=== PATIENT | male | born 1940 | race Caucasian/White ===

== ENCOUNTER 2017-04-12 12:40 | Inpatient (IN) | payer MEDICARE, BC ==
--- NOTE | 2017-04-12 17:15 | PCM.HP ---
H&P History of Present Illness - General Date of Service: 04/12/17 Admit Problem/Dx: Admission Diagnosis/Problem Admission Diagnosis/Problem Coronary artery bypass grafts x 3 Source of Information: Patient History Limitations: Reports: No Limitations - History of Present Illness Initial Comments - Free Text/Narative: Pt is a 76 year old Male who is here for swing bed admission. Pt has had Triple vessel CABG done on 04/05/[address] Cruz at [facility]. Pt has had uneventful recovery. He did receive 2 units of PRBC post surgery. He has been feeling fine. Has no chest pain, shortness of breath. No fever or chills. He has been doing OT and PT. No complaints or concern from patient. Able to walk without discomfort. His discharge hemoglobin was 8.6 - Related Data Allergies/Adverse Reactions: Allergies Allergy/AdvReac Type Severity Reaction Status Date / Time azithromycin Allergy Severe Anaphylactic Verified 12/14/16 12:42 Shock Home Medications: Home Meds Clopidogrel Bisulfate [Clopidogrel] 75 mg PO DAILY 07/09/14 [History] Simvastatin 40 mg PO QPM 02/04/15 [History] Metoprolol Succinate [Toprol XL] 25 mg PO QPM 10/23/15 [History] Docusate Sodium [Stool Softener] 250 mg PO BID PRN 05/02/16 [History] Albuterol [Ventolin HFA] 2 puff INH Q4H PRN 06/01/16 [History] Amitriptyline [Elavil] 100 mg PO QPM tablet 06/04/16 [Rx] Arformoterol [Brovana] 15 mcg INH BID 12/09/16 [History] Benzonatate [Tessalon Perles] 100 mg PO TID PRN 12/09/16 [History] Budesonide [Pulmicort] 0.5 mg IH BID 12/09/16 [History] Ferrous Sulfate 325 mg PO BID 12/09/16 [History] Levofloxacin [Levaquin] 750 mg PO DAILY 12/09/16 [History] Lisinopril 20 mg PO DAILY 12/09/16 [History] Warfarin [Coumadin] 5 mg PO DAILY@1800 12/09/16 [History] Past Medical History - Past Health History Medical/Surgical History: Denies Medical/Surgical History HEENT History: Reports: Hard of Hearing Cardiovascular History: Reports: Afib, Bypass, Heart Failure, High Cholesterol, Hypertension Respiratory History: Reports: COPD, Pneumonia, Recurrent, SOB Gastrointestinal History: Reports: Chronic Constipation Other Gastrointestinal History: indigestion, last BM 2-3 days ago Genitourinary History: Reports: Renal Disease Musculoskeletal History: Reports: Gout Psychiatric History: Reports: Depression Endocrine/Metabolic History: Reports: Other (See Below) Other Endocrine/Metabolic History: TSH elevated Hematologic History: Reports: Anemia, Blood Transfusion(s) Dermatologic History: Reports: Other (See Below) Other Dermatologic History: left side of nare bleeding - Infectious Disease History Infectious Disease History: Reports: Chicken Pox, Measles, Mumps - Past Surgical History Other HEENT Surgeries/Procedures: cataract surg scheduled for May Cardiovascular Surgical History: Reports: Coronary Artery Bypass Musculoskeletal Surgical History: Reports: Hip Replacement, Joint Replacement, Knee Replacement, Other (See Below) Other Musculoskeletal Surgeries/Procedures:: knee replacement bilaterally, left hip. Dermatological Surgical History: Reports: Other (See Below) Social & Family History - Family History Family Medical History: Noncontributory Cardiac: Reports: Heart Failure, Hypertension - Tobacco Use Smoking Status *Q: Former Smoker Years of Tobacco use: 22 Packs/Tins Daily: 1 Used Tobacco, but Quit: Yes Month Tobacco Last Used: march Second Hand Smoke Exposure: No - Caffeine Use Caffeine Use: Reports: None Caffeine Use Comment: "I was told I had to quit drinking caffiene." - Alcohol Use Days Per Week of Alcohol Use: 0 - Recreational Drug Use Recreational Drug Use: No H&P Review of Systems - Review of Systems: Review Of Systems: See Below General: Denies: Fever, Chills, Malaise, Weakness, Night Sweats HEENT: Denies: Ear Pain, Headaches, Hearing Changes, Sinus Congestion, Vertigo, Visual Changes Pulmonary: Denies: Shortness of Breath, Wheezing, Cough, Sputum Cardiovascular: Denies: Chest Pain, Dyspnea on Exertion, Orthopnea, Lightheadedness Gastrointestinal: Denies: Abdominal Pain, Nausea, Vomiting Genitourinary: Denies: Dysuria, Frequency Musculoskeletal: Denies: Neck Pain, Joint Pain, Joint Swelling Skin: Denies: Jaundice, Pruritis, Rash, Erythema Psychiatric: Denies: Confusion, Depression Exam - Exam Exam: See Below - Vital Signs Weight: 108.953 kg - Exam General: Alert, Oriented, 4 HEENT: PERRLA, Hearing Intact, Mucosa Moist & [place], Nares Patent, Normal Nasal Septum, Posterior Pharynx Clear, Conjunctiva Clear, EOMI, EACs Clear, TMs Clear Neck: Supple, Trachea Midline, 2 Lungs: Clear to Auscultation, Normal Respiratory Effort, Other (There is a well healed Mid sternal incsision, mild chest wall bruising) Cardiovascular: Irregular Rhythm Abdomen: Normal Bowel Sounds, Soft Back Exam: Normal Inspection, Full Range of Motion, NT Extremities: Normal Inspection, Edema (lower extremities 2+ pitting), Other ( Right wrist closed wound healing well . ) *Q Meaningful Use (ADM) - VTE *Q VTE Criteria *Q: - Stroke *Q Stroke Criteria *Q: - AMI *Q AMI Criteria *Q: - Problem List (1) S/P CABG x 3 SNOMED Code(s): 251268870, 774186239 ICD Code: Z95.1 - PRESENCE OF AORTOCORONARY BYPASS GRAFT Status: Acute Current Visit: Yes (2) CAD (coronary artery disease) SNOMED Code(s): 73630604 ICD Code: I25.10 - ATHSCL HEART DISEASE OF [place] CORONARY ARTERY W/O ANG PCTRS Status: Chronic Priority: Medium Current Visit: No Qualifiers: Coronary Disease-Associated Artery/Lesion type: unspecified vessel or lesion type [place] vs. transplanted heart: [place] heart Associated angina: without angina Qualified Code(s): I25.10 - Atherosclerotic heart disease of [place] coronary artery without angina pectoris Problem List Initiated/Reviewed/Updated: Yes Orders Last 24hrs: Active Orders 24 hr Category Date Time Status Patient Status [ADT] Routine ADT 04/12/17 14:55 Active OT Evaluation and Treatment [CONS] Routine Cons 04/12/17 14:50 Active PT Evaluation and Treatment [CONS] Routine Cons 04/12/17 14:50 Active CULTURE MRSA SURVEY [RM] Routine Lab 04/12/17 14:50 Received Assessment/Plan Comment:: Assessment: S/P Triple vessel CABG with CAD Atrial fibrillation Post Op anemia Plan: Patient's clinical exam is normal. He does have normal healing chest wall and right wrist wound. Will continue PT and PT as he progresses. Will continue his discharge medication. He will have coumadin 2.5 mg for next 2 days and have PT and INR of saturday. Also I would like to Get CBC in am to check his hemoglobin. Will closely monitor patient. I do anticipate smooth recovery.
[2017-04-12] MEDS ORDERED: Tuberculin, PPD 5 Units/0.1 ML 1 ML MDV IDERM ONE (17:21)
[2017-04-12] MEDS: Acetaminophen 325 MG Tab PO PRN (18:00)
[2017-04-12] MEDS ORDERED: Acetaminophen 325 MG Tab PO PRN (21:43)
[2017-04-12] MEDS ORDERED: Amitriptyline 25 MG Tab ONE (22:32)
[2017-04-12] MEDS ORDERED: Metoprolol Tartrate 50 MG Tab ONE (22:32)
[2017-04-12] MEDS ORDERED: Budesonide 0.5 MG/2 ML Neb Susp ONE (22:33)
[2017-04-12] MEDS ORDERED: Simvastatin 20 MG Tab ONE (22:33)
[2017-04-12] MEDS: Budesonide 0.5 MG/2 ML Neb Susp INH SCH (22:41)
[2017-04-12] MEDS: Simvastatin 40 MG Tab PO SCH (22:43)
[2017-04-12] MEDS: Metoprolol Tartrate 50 MG Tab PO SCH (22:48)
[2017-04-12] MEDS: Amitriptyline 25 MG Tab PO SCH (22:48)
[2017-04-13] MEDS: Omeprazole 20 MG Cap.CR PO SCH (06:51)
[2017-04-13] MEDS: Ferrous Sulfate 325 MG Tab PO SCH ×2 (08:27→16:37)
[2017-04-13] MEDS: Docusate Sodium 250 MG Cap PO SCH (08:27)
[2017-04-13] MEDS: Aspirin 81 MG Tab.Chew PO SCH (08:27)
[2017-04-13] MEDS: predniSONE 10 MG Tab PO SCH (08:28)
[2017-04-13] MEDS: Furosemide 20 MG Tab PO SCH ×2 (08:28→16:37)
[2017-04-13] MEDS: Metoprolol Tartrate 50 MG Tab PO SCH ×2 (08:28→20:07)
[2017-04-13] MEDS: Budesonide 0.5 MG/2 ML Neb Susp INH SCH ×2 (08:29→20:09)
[2017-04-13] MEDS: Arformoterol 15 MCG/2 ML Neb Soln INH SCH ×2 (08:43→20:08)
[2017-04-13] MEDS: Acetaminophen 325 MG Tab PO PRN ×2 (10:07→22:42)
[2017-04-13] MEDS: traMADol 50 MG Tab PO PRN ×2 (10:08→20:14)
[2017-04-13] MEDS ORDERED: Amoxicillin/Clavulanate K 875-125 MG Tab ONE (14:53)
[2017-04-13] MEDS: Amoxicillin/Clavulanate K 875-125 MG Tab PO SCH (20:07)
[2017-04-13] MEDS: Simvastatin 40 MG Tab PO SCH (20:07)
[2017-04-13] MEDS: Warfarin 2.5 MG Tab PO SCH (20:08)
[2017-04-13] MEDS: Amitriptyline 25 MG Tab PO SCH (20:08)
[2017-04-13] MEDS: Lactobacillus Acidophilus/Lactobacillus Sporogenes (Probiotic) Tab PO SCH (22:42)
[2017-04-14] MEDS: Omeprazole 20 MG Cap.CR PO SCH (06:33)
[2017-04-14] MEDS: Budesonide 0.5 MG/2 ML Neb Susp INH SCH ×2 (07:35→20:29)
[2017-04-14] MEDS: Ferrous Sulfate 325 MG Tab PO SCH ×2 (08:36→18:42)
[2017-04-14] MEDS: Furosemide 20 MG Tab PO SCH (08:37)
[2017-04-14] MEDS: Lactobacillus Acidophilus/Lactobacillus Sporogenes (Probiotic) Tab PO SCH (08:37)
[2017-04-14] MEDS: Docusate Sodium 250 MG Cap PO SCH (08:37)
[2017-04-14] MEDS: Aspirin 81 MG Tab.Chew PO SCH (08:37)
[2017-04-14] MEDS: Metoprolol Tartrate 50 MG Tab PO SCH ×2 (08:39→20:28)
[2017-04-14] MEDS: Acetaminophen 325 MG Tab PO PRN (08:39)
[2017-04-14] MEDS: Arformoterol 15 MCG/2 ML Neb Soln INH SCH ×2 (08:40→20:29)
[2017-04-14] MEDS: predniSONE 10 MG Tab PO SCH (08:40)
[2017-04-14] MEDS: traMADol 50 MG Tab PO PRN (08:45)
[2017-04-14] MEDS: Amoxicillin/Clavulanate K 875-125 MG Tab PO SCH ×2 (08:45→20:27)
[2017-04-14] MEDS: Warfarin 2.5 MG Tab PO SCH (18:42)
[2017-04-14] MEDS: Amitriptyline 25 MG Tab PO SCH (20:27)
[2017-04-14] MEDS: Simvastatin 40 MG Tab PO SCH (20:28)
[2017-04-15] MEDS: Omeprazole 20 MG Cap.CR PO SCH (06:55)
[2017-04-15] MEDS: Lactobacillus Acidophilus/Lactobacillus Sporogenes (Probiotic) Tab PO SCH (08:22)
[2017-04-15] MEDS: predniSONE 10 MG Tab PO SCH (08:23)
[2017-04-15] MEDS: Furosemide 20 MG Tab PO SCH ×3 (08:24→17:05)
[2017-04-15] MEDS: Metoprolol Tartrate 50 MG Tab PO SCH ×2 (08:24→19:28)
[2017-04-15] MEDS: Amoxicillin/Clavulanate K 875-125 MG Tab PO SCH ×2 (08:24→19:29)
[2017-04-15] MEDS: Ferrous Sulfate 325 MG Tab PO SCH ×2 (08:24→17:05)
[2017-04-15] MEDS: Docusate Sodium 250 MG Cap PO SCH (08:24)
[2017-04-15] MEDS: Aspirin 81 MG Tab.Chew PO SCH (08:24)
[2017-04-15] MEDS: Budesonide 0.5 MG/2 ML Neb Susp INH SCH ×2 (08:29→19:32)
[2017-04-15] MEDS: Arformoterol 15 MCG/2 ML Neb Soln INH SCH (08:51)
--- NOTE | 2017-04-15 09:43 | PCM.SN ---
- Free Text/Narrative Note: Patient is doing well today with no concerns or complaints. He has improved breathing and air movement of the lungs and denies any current sob.
[2017-04-15] MEDS: traMADol 50 MG Tab PO PRN (14:26)
[2017-04-15] MEDS ORDERED: Simvastatin 40 MG Tab PO SCH (14:37)
[2017-04-15] MEDS ORDERED: Albuterol/Ipratropium 3.0-0.5 MG/3 ML Neb Soln INH PRN (14:38)
[2017-04-15] MEDS ORDERED: Warfarin 5 MG Tab PO SCH (18:00)
[2017-04-15] MEDS: Amitriptyline 25 MG Tab PO SCH (19:27)
[2017-04-16] MEDS: Omeprazole 20 MG Cap.CR PO SCH (07:48)
[2017-04-16] MEDS: Aspirin 81 MG Tab.Chew PO SCH (07:49)
[2017-04-16] MEDS: Furosemide 20 MG Tab PO SCH (07:49)
[2017-04-16] MEDS: Amoxicillin/Clavulanate K 875-125 MG Tab PO SCH (07:49)
[2017-04-16] MEDS: Lactobacillus Acidophilus/Lactobacillus Sporogenes (Probiotic) Tab PO SCH (07:49)
[2017-04-16] MEDS: Metoprolol Tartrate 50 MG Tab PO SCH (07:50)
[2017-04-16] MEDS: Docusate Sodium 250 MG Cap PO SCH (07:50)
[2017-04-16] MEDS: Ferrous Sulfate 325 MG Tab PO SCH (07:50)
[2017-04-16 07:52] VITALS: BP 135/57
[2017-04-16] MEDS: Budesonide 0.5 MG/2 ML Neb Susp INH SCH (07:52)
[2017-04-16] MEDS ORDERED: predniSONE 10 MG Tab PO SCH (08:00)
[2017-04-16] MEDS ORDERED: Warfarin 2.5 MG Tab PO SCH (18:00)
--- NOTE | 2017-04-16 18:54 | DISCH ---
The patient was admitted to the hospital under the care of Dr. Lira and then Dr. 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 Hospital course was uneventful. He has had no problems here. He has been stable with his vital signs and lab work. He has cardiology followup tomorrow. The patient has had a history of coronary artery disease, atrial fibrillation, and COPD. He feels that his symptoms have improved significantly since his surgery. His fibrillation seems to have resolved. The patient will be discharged to home on his current medications. I did go over his medication list with him and explained that I am a little bit uncomfortable with his amitriptyline 100 mg that he takes at bedtime for sleep and suggested he discuss this with his boilermaker's assistant and with his primary care physician to see if it might be a good idea to wean him off this medication and use alternatives. I reviewed his clinic notes. Dr. Paiz had tried Ambien 10 mg in the past, which was not effective for his complaints. However, there are alternative medications that might be beneficial for this patient. FEI /[id number]
--- NOTE | 2017-04-17 08:32 | PCM.DCSUM1 ---
Discharge Summary - Discharge Data Discharge Date: 04/16/17 Discharge Disposition: Home, Self-Care 01 Condition: Good - Patient Summary/Data Consults: Consultations 04/12/17 14:50 OT Evaluation and Treatment [CONS] Routine Please Evaluate and Treat. OT Reason for Consult: Strengthening This query below is only for informational purposes and is not editable. PT Evaluation and Treatment [CONS] Routine Please Evaluate and Treat. PT Reason for Consult: Strengthening This query below is only for informational purposes and is not editable. - Patient Instructions Diet: Usual Diet as Tolerated Activity: As Tolerated Driving: Do Not Drive - Discharge Plan Home Medications: Home Meds Simvastatin 20 mg PO QPM 02/04/15 [History] Docusate Sodium [Stool Softener] 250 mg PO DAILY 05/02/16 [History] Albuterol [Ventolin HFA] 2 puff INH Q4H PRN 06/01/16 [History] Amitriptyline [Elavil] 100 mg PO QPM tablet 06/04/16 [Rx] Arformoterol [Brovana] 15 mcg INH BID 12/09/16 [History] Budesonide [Pulmicort] 0.5 mg IH BID 12/09/16 [History] Ferrous Sulfate 325 mg PO BID 12/09/16 [History] Warfarin [Coumadin] 2.5 mg PO DAILY@1800 12/09/16 [History] Acetaminophen [Tylenol] 650 mg PO Q4H PRN 04/12/17 [History] Aspirin 81 mg PO DAILY 04/12/17 [History] Furosemide 20 mg PO BID 04/12/17 [History] Metoprolol Tartrate 50 mg PO BID 04/12/17 [History] Omeprazole 20 mg PO DAILY 04/12/17 [History] predniSONE [Prednisone] 20 mg PO DAILY 04/12/17 [History] traMADol [Ultram] 25 mg PO Q4H PRN 04/12/17 [History] Patient Handouts: Coronary Artery Bypass Grafting, Care After, [id number] - Discharge Summary/Plan Comment DC Time >30 min.: Yes Discharge Summary/Plan Comment: This is a 76yo M who was admitted by Dr. Grimaldo for swing bed rehabilitation post -CABG. Patient has been doing very well with no complaints to date while in rehab. Patient does have a follow up on 5/24 to see the Radio Script Writer and will keep this appointment. Patient has been doing well with no sob or dyspnea on exertion since the CABG. Patient does have help at home from his . Patient to f/u with Cardiology and with a clinic visit as directed. Patient agrees on current plan of care and f/u. - Patient Data Vitals - Most Recent: Last Vital Signs Temp 36.6 C 04/16/17 08:00 Pulse 76 04/16/17 08:00 Resp 20 04/16/17 08:00 BP 135/57 L 04/16/17 08:00 Pulse Ox 96 04/16/17 08:00 Weight - Most Recent: 105.687 kg Med Orders - Current: Current Medications Discontinued Medications Acetaminophen (Tylenol) 650 mg PO Q4H PRN PRN Reason: Pain (mild 1-3) Last Admin: 04/14/17 08:39 Dose: 650 mg Albuterol/Ipratropium (Duoneb 3.0-0.5 Mg/3 Ml) 3 ml INH Q4H PRN PRN Reason: COPD Amitriptyline HCl (Elavil) 100 mg PO QPM [facility] Last Admin: 04/15/17 19:27 Dose: 100 mg Amitriptyline HCl (Elavil) Confirm Administered Dose 100 mg .ROUTE .STK-MED ONE Stop: 04/12/17 22:33 Last Admin: 04/12/17 22:53 Dose: Not Given Amoxicillin/Clavulanate Potassium (Augmentin 875 Mg/125 Mg) 1 tab PO Q12HR [facility] Stop: 04/23/17 08:00 Last Admin: 04/16/17 07:49 Dose: 1 tab Amoxicillin/Clavulanate Potassium (Augmentin 875 Mg/125 Mg) Confirm Administered Dose 1 tab .ROUTE .STK-MED ONE Stop: 04/13/17 14:54 Last Admin: 04/13/17 15:00 Dose: 1 tab Arformoterol Tartrate (Brovana) 15 mcg INH BID [facility] Last Admin: 04/15/17 08:51 Dose: Not Given Aspirin (Aspirin) 81 mg PO DAILY [facility] Last Admin: 04/16/17 07:49 Dose: 81 mg Budesonide (Pulmicort) 0.5 mg INH BID [facility] Last Admin: 04/16/17 07:52 Dose: 0.5 mg Budesonide (Pulmicort) Confirm Administered Dose 0.5 mg .ROUTE .K-MED ONE Stop: 04/12/17 22:34 Last Admin: 04/12/17 22:54 Dose: Not Given Docusate Sodium (Dok) 250 mg PO DAILY [facility] Last Admin: 04/16/17 07:50 Dose: 250 mg Ferrous Sulfate (Ferrous Sulfate) 325 mg PO BIDMEALS [facility] Last Admin: 04/16/17 07:50 Dose: 325 mg Formoterol Fumarate (Perforomist) 20 mcg NEB BID [facility] Last Admin: 04/16/17 08:09 Dose: 20 mcg Furosemide (Lasix) 20 mg PO BIDDIURETIC [facility] Last Admin: 04/16/17 07:49 Dose: 20 mg Lactobacillus Acidophilus (Acidolphilus Extra Strength) 1 tab PO DAILY [facility] Last Admin: 04/16/17 07:49 Dose: 1 tab Metoprolol Tartrate (Lopressor) 50 mg PO BID [facility] Last Admin: 04/16/17 07:50 Dose: 50 mg Metoprolol Tartrate (Lopressor) Confirm Administered Dose 50 mg .ROUTE .K-MED ONE Stop: 04/12/17 22:33 Last Admin: 04/12/17 22:53 Dose: Not Given Omeprazole (Omeprazole) 20 mg PO ACBREAKFAST [facility] Last Admin: 04/16/17 07:48 Dose: 20 mg Prednisone (Prednisone) 20 mg PO DAILY [facility] Stop: 04/15/17 17:00 Last Admin: 04/15/17 08:23 Dose: 20 mg Prednisone (Prednisone) 10 mg PO DAILY [facility] Stop: 04/18/17 17:00 Last Admin: 04/16/17 07:50 Dose: 10 mg Simvastatin (Zocor) 20 mg PO QPM [facility] Last Admin: 04/14/17 20:28 Dose: 20 mg Simvastatin (Zocor) Confirm Administered Dose 20 mg .ROUTE .STK-MED ONE Stop: 04/12/17 22:34 Last Admin: 04/12/17 22:54 Dose: Not Given Simvastatin (Zocor) 40 mg PO QPM [facility] Last Admin: 04/15/17 19:31 Dose: 40 mg Tramadol HCl (Ultram) 25 mg PO Q4H PRN PRN Reason: Pain (moderate 4-6) Last Admin: 04/15/17 14:26 Dose: 25 mg Tuberculin PPD (Aplisol) 5 unit IDERM ONETIME ONE Stop: 04/12/17 17:22 Last Admin: 04/12/17 18:16 Dose: 5 unit Warfarin Sodium (Coumadin) 2.5 mg PO DAILY@1800 [facility] Last Admin: 04/14/17 18:42 Dose: 2.5 mg Warfarin Sodium (Coumadin) 5 mg PO DAILY@1800 [facility] Last Admin: 04/15/17 17:04 Dose: 5 mg Warfarin Sodium (Coumadin) 2.5 mg PO DAILY@1800 [facility] *Q Meaningful Use (DIS) - VTE *Q VTE Criteria *Q: - Stroke *Q Stroke Criteria *Q: - AMI *Q AMI Criteria *Q:
== END 2017-04-16 16:25 | disposition home or self-care (01) | DRG 948 ==
LOC: LB.MS 12:40 → UNDOADMIN 12:40 → LB.MS 13:06 → UNDOADMIN 14:55 → LB.MS 17:21
PROVIDERS: ADMIT Family Medicine; ATTEND Family Medicine
DX: R53.1 Weakness (principal); I25.10 Atherosclerotic heart disease of native coronary artery without angina pectoris; Z98.890 Other specified postprocedural states; Z95.1 Presence of aortocoronary bypass graft; E78.00 Pure hypercholesterolemia, unspecified; I10 Essential (primary) hypertension; J44.9 Chronic obstructive pulmonary disease, unspecified; Z87.01 Personal history of pneumonia (recurrent); K59.09 Other constipation; Z87.891 Personal history of nicotine dependence; H91.90 Unspecified hearing loss, unspecified ear; Z79.01 Long term (current) use of anticoagulants; Z88.1 Allergy status to other antibiotic agents; Z96.653 Presence of artificial knee joint, bilateral; Z96.642 Presence of left artificial hip joint
CPT/HCPCS: 36415; 85025; 85610; 86580; 97110-GP; 97116-GP; 97162-GP; 97530-GP; A9270-GY; J7605